=== PATIENT | female | born 1945 | race Two or more races ===

== ENCOUNTER 2018-01-18 09:46 | Outpatient (CLI) | payer OTHER | END 2018-01-18 09:56 | disposition home or self-care (01) | LOC: RAD 501 09:46 | DX: S72.141D Displaced intertrochanteric fracture of right femur, subsequent encounter for closed fracture with routine healing (principal) ==

== ENCOUNTER 2018-05-14 09:37 | Outpatient (CLI) | payer OTHER | END 2018-05-14 09:48 | disposition home or self-care (01) | LOC: RAD 501 09:37 | DX: S72.141D Displaced intertrochanteric fracture of right femur, subsequent encounter for closed fracture with routine healing (principal) ==

== ENCOUNTER 2019-12-09 08:49 | Outpatient (CLI) | payer OTHER | END 2019-12-09 08:55 | disposition home or self-care (01) | LOC: RAD 08:49 | DX: M76.31 Iliotibial band syndrome, right leg (principal) ==